=== PATIENT | female | born 1980 | race Caucasian/White ===

== ENCOUNTER 2018-09-22 16:54 | Emergency (ER) | payer OTHER ==
[~2018-09-22] VITALS: Ht 154.9 cm; Wt 100.0 kg
[2018-09-22 16:54] VITALS: BP 133/82
== END 2018-09-22 17:44 | disposition home or self-care (01) ==
LOC: M ED 16:54
DX: M54.12 Radiculopathy, cervical region (principal); M79.602 Pain in left arm

== ENCOUNTER 2020-08-02 14:02 | Emergency (ER) | payer OTHER ==
[~2020-08-02] VITALS: Ht 157.5 cm; Wt 96.6 kg
[2020-08-02] MEDS ORDERED: ONDANSETRON 4MG/2ML VIAL IV ONE (15:15)
[2020-08-02] MEDS ORDERED: KETOROLAC 30 MG/ML 1ML VIAL IV ONE (15:15)
[2020-08-02] MEDS ORDERED: NS 1,000 ML IV ONE (15:20)
--- NOTE | 2020-08-02 16:07 | ECGEPIP ---
[facility] - ED Test Date: 2020-08-02 Pat Name: ALEX RODRIGUEZ Department: Room: - Gender: Female [employer]: WES : 1980 Requested By: KATHY Palmer PA-C Order Number: [id number] Reading MD: Matthieu Oates Measurements Intervals [place] Rate: 73 P: 6 NC: 132 QRS: 1 QRSD: 82 T: 4 QT: 398 QTc: 438 Interpretive Statements Normal sinus rhythm POOR R WAVE PROGRESSION NONSPECIFIC T WAVE ABNORMALITY(S) NO PRIORS FOR COMPARISON Electronically Signed on 08-02-2020 16:07:33 EST by Matthieu Oates
[2020-08-02 16:18] LABS: BASO # 0.1 10^3/uL (0.0-0.2); BASO % 0.7 % (0.0-1.0); EOS # 0.1 10^3/uL (0.0-0.5); EOS % 0.8 % (0.0-3.0); HEMOGLOBIN 10.5 g/dl (12.0-15.5); LYMPH # 2.9 10^3/uL (1.5-5.0); LYMPH % 33.9 % (24.0-44.0); MEAN CORPUSCULAR HEMOGLOBIN 22.8 pg (27.0-33.0); MEAN CORPUSCULAR VOLUME 75.9 fl (80.0-96.0); MONO # 0.5 10^3/uL (0.0-0.8); NEUTROPHILS % 58.4 % (36.0-66.0); PLATELET COUNT, AUTOMATED 305 10^3/uL (150-450); RED BLOOD COUNT 4.61 10^6/uL (4.00-5.40); WHITE BLOOD COUNT 8.5 10^3/uL (4.0-10.0)
[2020-08-02 16:35] LABS: ALBUMIN 3.9 GM/DL (3.2-5.2); ALT/SGPT 19 U/L (12-78); BILIRUBIN,DIRECT 0.1 MG/DL (0.0-0.2); BILIRUBIN,TOTAL 0.2 MG/DL (0.2-1.0); CK-MB VALUE MASS < 1.0 NG/ML (<3.6); CPK CREATINE PHOSPHOKINASE 65 U/L (26-192); LIPASE 119 U/L (73-393); MB/CK RELATIVE INDEX 1.54 (< OR =4); TOTAL PROTEIN 6.8 GM/DL (6.4-8.2); TROPONIN I < 0.02 NG/ML (< 0.10)
[2020-08-02] MEDS ORDERED: ISOVUE-370 76% 100ML VIAL As Ordered ONE (17:09)
--- NOTE | 2020-08-02 18:19 | REPVR ---
PROCEDURE INFORMATION: Exam: CT Abdomen And Pelvis With Contrast Exam date and time: 08/02/2020 4:42 PM Age: 40 years old Clinical indication: Abdominal pain; Localized; Right lower quadrant (rlq); Additional info: Rlq pain TECHNIQUE: Imaging protocol: Computed tomography of the abdomen and pelvis with contrast. Radiation optimization: All CT scans at this facility use at least one of these dose optimization techniques: automated exposure control; mA and/or kV adjustment per patient size (includes targeted exams where dose is matched to clinical indication); or iterative reconstruction. Contrast material: ISOVUE 370; Contrast volume: 100 ml; Contrast route: INTRAVENOUS (IV); COMPARISON: No relevant prior studies available. FINDINGS: Lungs: Included lung bases are clear. Liver: Normal. No mass. Gallbladder and bile ducts: There has been a cholecystectomy. No significant biliary ductal dilatation. Pancreas: Normal. No ductal dilation. Spleen: Normal. No splenomegaly. Adrenal glands: Normal. No mass. Kidneys and ureters: Normal. No hydronephrosis. Stomach and bowel: Unremarkable. No obstruction. Appendix: No evidence of appendicitis. Intraperitoneal space: Unremarkable. No free air. No significant fluid collection. Vasculature: There are bilateral pelvic calcifications which are most likely phleboliths. Lymph nodes: There are multiple small central and left mesenteric lymph nodes. There also a few small right lower quadrant lymph nodes. Urinary bladder: Unremarkable as visualized. Reproductive: Small amount of air in the vaginal vault. Incidental note of a simple appearing dominant follicle in the right ovary measuring 2.3 cm. Ovaries are unremarkable. Uterus is unremarkable. There is a nabothian cyst incidentally noted in the cervix. Bones/joints: Degenerative disc and facet disease with posterior disc bulge at L4-L5 resulting in central canal narrowing. Similar degenerative changes at L5-S1 without central canal narrowing. Small amount of calcification in the disc at the L1-L2 level which may be associated with a small sclerotic Schmorl's node in the superior endplate of L2. Soft tissues: Prior midline abdominal incision. IMPRESSION: 1. Multiple small central and left mesenteric as well as right lower quadrant lymph nodes which may be within normal limits for this patient, or could reflect mild mesenteric adenitis or mild enterocolitis. 2. Status post cholecystectomy. 3. Incidental 2.3 cm simple appearing dominant follicle in the right ovary. No further imaging is recommended. (Reference: Shaq) References: Shaq et al. Management of Incidental Adnexal Findings on CT and MRI: A White Paper of the ACR Incidental Findings Committee, J Am Abi Radiol. 2019;17(2):248-254. Electronically signed by: Kirsten Jj On 08/02/2020 18:20:18 PM
[2020-08-02] MEDS ORDERED: ZOFR4TAB16 PO (18:43)
[2020-08-02] MEDS ORDERED: KETO10TAB PO (18:44)
[2020-08-02 18:54] VITALS: BP 132/72
== END 2020-08-02 19:01 | disposition home or self-care (01) ==
LOC: M ED 14:02
DX: I88.0 Nonspecific mesenteric lymphadenitis (principal); F17.210 Nicotine dependence, cigarettes, uncomplicated
CPT/HCPCS: 74177; 80047; 80076; 81001; 82550; 82553; 83605; 83690; 84702; 85025; 93005; 96361; 96374; 96375; 99284; J1885; J2405; Q9967

== ENCOUNTER 2023-02-26 11:09 | Emergency (ER) | payer OTHER ==
[~2023-02-26] VITALS: Ht 154.9 cm; Wt 109.1 kg
[~2023-02-26 11:09] MED LIST: KETO10TAB PO; ZOFR4TAB16 PO
[2023-02-26] MEDS ORDERED: LIDOCAINE 5% (LIDODERM) PATCH TD ONE ×2 (13:50→15:10)
[2023-02-26] MEDS ORDERED: diazePAM 10 MG TAB PO ONE (13:50)
[2023-02-26] MEDS ORDERED: KETOROLAC 60MG 2ML VIAL IM ONE (13:50)
[2023-02-26] MEDS ORDERED: NAPR-885 PO (15:39)
[2023-02-26] MEDS ORDERED: ASPE4PAD2 TOP (15:39)
[2023-02-26] MEDS ORDERED: METH-1165 PO (15:39)
[2023-02-26 16:05] VITALS: BP 133/83; TEMP 98.1; O2SAT 100
== END 2023-02-26 16:07 | disposition home or self-care (01) ==
LOC: M ED 11:09
DX: M54.50 Low back pain, unspecified (principal); F17.200 Nicotine dependence, unspecified, uncomplicated
CPT/HCPCS: 72110; 96372; 99283; J1885